=== PATIENT | female | born 1980 | race Caucasian/White ===

== ENCOUNTER 2019-10-14 17:02 | Emergency (ER) | payer OTHER, SELFPAY ==
--- NOTE | 2019-10-14 17:16 | ED.URI ---
HPI - URI/Sore Throat General Chief Complaint: Upper Respiratory Infection Stated Complaint: SORE THROAT Time Seen by Provider: 10/14/19 17:17 Source: patient Mode of arrival: ambulatory Limitations: no limitations History of Present Illness HPI Narrative: A 39 y/o female, who is a nonsmoker/nondrinker, presents to with c/o a sore throat for 3 days. Pt has taken cold medicine with no relief. She reports an intermittent low grade fever, a bilateral earache, sweats, and chills, but denies a cough and sick contacts. Onset (ago): day(s) (3) Treatments prior to arrival: cold medicine Related Data Home Medications Medication Instructions Recorded Confirmed Otc Flu Med 10/14/19 Allergies Allergy/AdvReac Type Severity Reaction Status Date / Time No Known Allergies Allergy Verified 10/14/19 17:24 Review of Systems Review of Systems: Narrative: General/Constitutional: No weight loss,possible fever Eyes: N0: Redness,discharge Ears/Nose/Throat: No: Epistaxis,ear discharge Respiratory: Denies: Hemoptysis Gastrointestinal: No Vomiting, Bleeding-rectal Skin: No Lumps, eruption Neurologic: No Focal Weakness,Sz Hematologic: Denies: Petechiae/Purpura Psychiatric: No: Suicida ideationl All Other Systems: Reviewed and Negative PMFSH Family History Family History (Updated 07/07/18 @ 14:45 by DOCTOR UNKNOWN) Grandparent Carcinoma of colon Social History Social History Alcohol intake: current Comments At time of signature, agree with nursing past medical, surgical, social and family history. There is no relevant family history pertinent to the presenting complaint Exam Narrative: Exam Narrative: General Appearance: Well appearing, Well nourished EYE: PERRLA, Conjunctiva clear Ears: Auditory canal normal, TM normal Nose: Rhinorrhea, Mucousal erythema Mouth/Throat: MM moist, Uvula midline, Pharyngeal erythema Neck: Supple, No adenopathy Respiratory: No respiratory distress, Breath sounds equal, Clear to auscultation Cardiovascular: RRR, No JVD Musculoskeletal: Non tender, Normal strength Skin: Warm, Dry Neurological: A&O x3, CN II-XII intact Psychiatric: Normal mood, Normal affect Course Vital Signs Vital signs: Vital Signs Temperature 98.5 F 10/14/19 17:17 Pulse Rate 79 10/14/19 17:17 Respiratory Rate 18 10/14/19 17:17 Blood Pressure 144/84 H 10/14/19 17:17 Pulse Oximetry 100 10/14/19 17:17 Temperature 98.5 F 10/14/19 17:17 Pulse Rate 79 10/14/19 17:17 Respiratory Rate 18 10/14/19 17:17 Blood Pressure 144/84 H 10/14/19 17:17 Pulse Oximetry 100 10/14/19 17:17 MDM - URI/Sore Throat Lab Data Labs: Influenza A Screen Negative Reference Range: Negative Influenza B Screen Positive Reference Range: Negative Discharge Plan Discharge Clinical Impression: Influenza B Patient Disposition: Home, Self-Care Condition: Stable Instructions: Influenza (ED) Prescriptions: New oseltamivir [Tamiflu] 75 mg capsule 75 mg PO Q12H 5 Days Qty: 10 RF: 0 codeine-guaifenesin 10-100 mg/5 mL liquid 7.5 ml PO Q6H PRN (Reason: cough) Qty: 118 RF: 0 Lidocaine Viscous 2 % solution 5 ml MUCOUS MEM QID PRN (Reason: pain) Qty: 100 RF: 0 No Action Otc Flu Med RF: 0 Follow-up/Referrals: Edna,DONG Mcclain [Primary Care Provider] - Stand Alone Forms: Work/School Release IP
[2019-10-14 17:17] VITALS: BP 144/84; PULSE 79; RESP 18; TEMP 36.9; O2SAT 100
== END 2019-10-14 17:32 | disposition home or self-care (01) ==
PROVIDERS: Emergency Provider Emergency Medicine; PCP Physician Assistant
DX: J10.1 Influenza due to other identified influenza virus with other respiratory manifestations (principal)
CPT/HCPCS: 87804; 99213; G0463

== ENCOUNTER → 2022-11-03 08:08 | Outpatient (CLI) | payer OTHER, SELFPAY ==
--- NOTE | ~2022-11-03 | US_ITS ---
EXAMINATION: US pelvic complete w TV DATE: 11/03/2022 09:11 INDICATION: Left lower quadrant abdominal pain. TECHNIQUE: Multiple transabdominal and transvaginal sonographic images of the pelvis were obtained. COMPARISON: None. FINDINGS: TRANSABDOMINAL ULTRASOUND: The uterus measures 10.7 x 4.5 x 7.4 cm. There is no free fluid in the pelvis. TRANSVAGINAL ULTRASOUND: The endometrial complex measures 11 mm in thickness. There are nabothian cysts in the cervix. The rig ht ovary measures 3.0 x 2.9 x 3.1 cm. The left ovary measures 4.4 x 3.5 x 3.3 cm. There is normal vas cular flow in the ovaries. IMPRESSION: 1. No etiology for the patient's symptoms. Reviewed, dictated and finalized at location A. S AND CUSTOMER RELATIONS REP
== END ==
PROVIDERS: PCP Physician Assistant; Visit Provider Physician Assistant
DX: R10.32 Left lower quadrant pain (principal)
CPT/HCPCS: 76830; 76856

== ENCOUNTER 2024-08-09 08:22 | Outpatient (CLI) | payer OTHER, SELFPAY ==
[2024-08-09 08:51] LABS: Basophils Percent Auto 0.6 % (0.2-1.2); Eosinophils Absolute Auto 0.1 K/mm3 (0-0.3); Hematocrit 38.3 % (37.0-47.0); Hemoglobin 11.5 g/dL (12.0-15.0); Immature Granulocyte Absolute 0.02 K/mm3 (0.00-0.031); Immature Granulocyte Percent A 0.3 % (0-0.5); Lymphocytes Absolute Auto 1.26 K/mm3 (0.9-3.2); Lymphocytes Percent Auto 20.5 % (18.3-44.2); Mean Corpuscular Hemoglobin 22.6 pg (26-34); Mean Corpuscular Volume 75.2 fl (80-100); Mean Platelet Volume 10.2 fl (7.4-10.4); Monocytes Absolute Auto 0.4 K/mm3 (0.1-0.6); Monocytes Percent Auto 7.1 % (2.6-8.5); Neutrophils Absolute Auto 4.3 K/mm3 (1.3-6.7); Neutrophils Percent Auto 70.5 % (45.5-73.1); Platelet Count Result 310 k/mm3 (150-375); Red Blood Count 5.09 M/mm3 (4.2-5.4); Red Cell Distribution Width 22.9 % (11.5-14.5); White Blood Count 6.2 K/mm3 (4.5-10.0)
[2024-08-09 09:18] LABS: Anisocytosis 1+; Platelet Estimate Adequate (Adequate); Schistocytes None Seen
[2024-08-09 09:19] LABS: Hemoglobin A1C 5.1 % (<5.7)
[2024-08-09 09:25] LABS: Cholesterol 210 mg/dL (0-200); HDL Direct 77 mg/dL; Triglycerides 69 mg/dL (<150)
[2024-08-09 09:36] LABS: LDL Cholesterol Direct 101 mg/dL
[2024-08-09 11:46] LABS: Vitamin D 25 Hydroxy 26.9 ng/mL
== END 2024-08-09 08:23 | disposition home or self-care (01) ==
LOC: ANHLAB 08:23
PROVIDERS: Visit Provider Obstetrics & Gynecology
DX: N92.0 Excessive and frequent menstruation with regular cycle (principal); E55.9 Vitamin D deficiency, unspecified; Z13.89 Encounter for screening for other disorder
CPT/HCPCS: 36415; 80061; 82306; 83036; 84443; 85025

== ENCOUNTER 2024-08-21 01:03 | Day surgery (SDC) | payer OTHER, SELFPAY ==
--- NOTE | 2024-08-09 16:56 | SUR.PREOP ---
Report to the Outpatient Waiting Room, entrance under the green pavilion located off [facility], at time _1130_ on date _08/21/24_. Planned Procedure Time: _1330_.? Time changes happen often and if your time is changed the preop area will call you the afternoon before. - You and your visitor will be asked to self-screen and do not enter if you have any COVID symptoms. Please call surgeon if you need to reschedule. - A mask is optional within the hospital at this time. Patients may have clear liquids (water, carbonated beverages, clear teas, apple juice) until 3 hours (1030) prior to surgery with a maximum of 20 ounces. - No food from midnight until time of surgery and no smoking. This includes no chewing gum, candy or mints. - Infants may have breast milk until 4 hours before surgery, infant formula 6 hours prior to surgery. - Children will be allowed to drink immediately following surgery.? If applicable, please bring a bottle or sippy cup to assist with drinking. Juice, water, soda, and popsicles are readily available.? For infants on formula, please bring formula the day of surgery.? Pacifiers are allowed. Take only the following medications with a SIP of water on the morning of surgery: _NA_ DO NOT STOP ANY OF YOUR OTHER PRESCRIPTION MEDICATIONS PRIOR TO SURGERY EXCEPT THE FOLLOWING Medications to discontinue per physician _NA_ Date to take last dose_NA_ Please no make-up, nail new zealander, hairspray, perfume, deodorant, or body powder the day of surgery.? No jewelry (including any body piercings) or valuables the day of surgery, leave them at home.? Please take a shower or bath the night before, or the morning of, surgery with an antibacterial soap.? Wear comfortable, loose fitting clothing.? Children are encouraged to wear pajamas. - Jewelry must be removed prior to entering the operating room.? Rings and piercings that are not removed may be cut off. - The hospital will not accept responsibility for valuables.? - Please leave all valuables, including medications, at home the day of surgery. If you are going home after surgery, a licensed water taxi driver must drive you home.? - NO public transportation without another adult if you receive anesthesia. - We recommend that an adult stay with you for 24 hours following discharge. - We also recommend that you do not drive, make important decision, drink alcoholic beverages, or take any drugs that were not prescribed by your health care provider for at least 24 hours after your discharge time. For Pediatric surgeries, we recommend two adults accompany the child home. Follow any additional instructions given to you from your surgeon. Telephone instructions given to _Camilla_and asked if any additional questions and then verbalized understanding. Patient advised to call surgeon office or pre surgery nurse liaison [phone] if any additional questions.
[2024-08-09 17:09] VITALS: BMI 30.1
--- NOTE | 2024-08-20 18:01 | P.HP_ITS ---
H&P: HPI History of Present Illness Date/Time: 08/20/24 18:01 Chief Complaint: AUB Narrative: Camilla is a 44yo [id number], who presents for surgery for AUB. She reports her periods were horrible last year; but have regulated. But since her WWE in 05/2024, started to worsened again. Her prior obgyn did an US; was going to get an ablation but insurance would not approve it. Her periods have since leveled out; monthly, last about 5 days, heavy for 2-3 (have always been heavy). Blood work showed she was very anemic with hgb of 9.8. She has since gotten IV iron infusions and her hgb samira appropriately to 11.5. No menopausal symptoms. She is sexually active w/o issue; has vasectomy. She denies any breast issues; had an abnormal mammo (dense), but repeat was normal, no h/o biopsies. She reports a normal h/o paps, most recent normal 05/2024. Review of Systems Constitutional: Constitutional: Denies chills, Denies fever(s) and Denies headache(s) Eyes: Eyes: Denies change in vision ENT: Denies dizziness and Denies headache(s) Cardiovascular: Cardiovascular: Denies chest pain and Denies dyspnea Respiratory: Respiratory: Denies cough and Denies dyspnea Gastrointestinal: Gastrointestinal: Denies abdominal pain and Denies change in stool character Genitourinary: Genitourinary: Reports abnormal menses, Reports menorrhagia, Denies pelvic pain, Denies vaginal discharge, Denies vaginal odor and Denies vaginal pruritus Neurologic: Denies dizziness and Denies headache(s) Psychiatric: Psychiatric: Denies anxiety and Denies depression [facility] Past Medical History Medical History delivery delivered Family History Family History Grandparent Carcinoma of colon Cancer grandmother/grandfather maternal Heart problem grandfather paternal Hypertension paternal grandfather Social History Social History (Updated 06/14/24 @ 09:08 by Keenan Shane MA) Smoking status: Never smoker Second hand tobacco smoke exposure: No Alcohol intake: current Drinks per week: 1 Alcohol use details: OCCASIONAL Substance use: never Substance use type: does not use Do You Feel Safe in your Home?: Yes Lack of Transportation: No Lack of Food: Never True Current Housing: I Have Housing Concerned About Future Housing: No Difficulty Paying Gas/Electric Bills: No Difficulty Paying for Meds: No Currently Unemployed: No Education: Trade/Vocational Certificate Difficulty w/ Childcare or Family Care: No Living arrangements: with family Additional living arrangements comments: and 3 children Occupation/Education: occupation Gender identity (if verbalized by the patient): Female Sexual Orientation (if Verbalized by the Patient): Straight or Heterosexual Spiritual care concerns: No Meds Home Medications and Allergies Home Medications ?Medication ?Instructions ?Recorded ?Confirmed ?Type tranexamic acid 650 mg tablet 1,300 mg PO TID 08/09/24 08/09/24 History Allergies Allergy/AdvReac Type Severity Reaction Status Date / Time No Known Allergies Allergy Verified 08/09/24 17:07 Exam Const: General: cooperative, healthy appearing, comfortable and no acute distress Orientation/consciousness: patient oriented x3 Resp: Effort & Inspection: normal respiratory effort Cardio: Rate: regular rate GI: Inspection: normal to inspection GI Palp: No abdominal tenderness and Yes Soft to palpation : Other: deferred to OR Skin: General skin exam: normal color Neuro: General: patient oriented x3 Extrem: General: normal to inspection Psych: Appearance: grossly normal Affect: normal affect Attitude: cooperative Assessment and Plan Assessment and plan (1) Menorrhagia: Qualifiers: Menorrhagia type: with regular cycle Qualified Code(s): N92.0 - Excessive and frequent menstruation with regular cycle Code(s): N92.0 - Excessive and frequent menstruation with regular cycle Status: Acute (2) Iron deficiency anemia secondary to blood loss (chronic): Code(s): D50.0 - Iron deficiency anemia secondary to blood loss (chronic) Status: Acute Plan - Pt w/ significant AUB leading to anemia; now improved after IV iron - Plan to proceed with Hysteroscopy with D&C for sampling; will then have HSC/D&C/ablation in 2 weeks. - Risks and benefits explained in detail.
--- NOTE | 2024-08-21 07:11 | WPDHPUPDATE1 ---
History and Physical Update Update Date/Time: 08/21/24 07:11 History and Physical has been reviewed, including an updated exam of the patient. There are NO changes in the patient's condition. Risks, benefits, and alternatives have been discussed and questions answered. Patient agrees to proceed with Hysteroscopy with D&C for sampling.
--- NOTE | 2024-08-21 11:07 | P.PNAN_ITS ---
Anes - Eval Pre Procedure Procedure: Operation Date: 08/21/24 13:30 Proposed Procedures p Hysteroscopy Dilation and Curettage - Yaz Royal MD Date/Time: 08/21/24 11:07 Surgeon: Lele Preop Diagnosis: abnormal uterine bleeding Pre Op Diagnosis: post menopausal bleeding Patient Data Age: 44 Gender: F Height: 1.6 m Weight: 77.11 kg Allergies Allergy/AdvReac Type Severity Reaction Status Date / Time No Known Allergies Allergy Verified 08/09/24 17:07 Home Medications ?Medication ?Instructions ?Recorded ?Confirmed ?Type tranexamic acid 650 mg tablet 1,300 mg PO TID 08/09/24 08/09/24 History Patient hx anesthesia problems: none Family hx anesthesia problems: none Results Review: All pre-operative results and documents have been reviewed as part of the pre- operative evaluation. [facility] Past Medical History Medical History delivery delivered Family History Family History Grandparent Carcinoma of colon Cancer grandmother/grandfather maternal Heart problem grandfather paternal Hypertension paternal grandfather Social History Social History Smoking status: Never smoker Second hand tobacco smoke exposure: No Alcohol intake: current Drinks per week: 1 Alcohol use details: OCCASIONAL Substance use: never Substance use type: does not use Do You Feel Safe in your Home?: Yes Lack of Transportation: No Lack of Food: Never True Current Housing: I Have Housing Concerned About Future Housing: No Difficulty Paying Gas/Electric Bills: No Difficulty Paying for Meds: No Currently Unemployed: No Education: Trade/Vocational Certificate Difficulty w/ Childcare or Family Care: No Living arrangements: with family Additional living arrangements comments: and 3 children Occupation/Education: occupation Gender identity (if verbalized by the patient): Female Sexual Orientation (if Verbalized by the Patient): Straight or Heterosexual Spiritual care concerns: No Exam Day of Procedure 08/21/24 11:07 Patient weight: overweight (bmi 30.1)
[2024-08-21 12:00] VITALS: BP 136/64; PULSE 74; RESP 14; TEMP 36.4; O2SAT 100
[2024-08-21] MEDS: ACETAMINOPHEN 500 MG TABLET 1000 MG PO (12:07)
--- NOTE | 2024-08-21 12:20 | P.PNAN_ITS ---
Anes - Eval Final PreProcedure Day of Procedure 08/21/24 12:20 Patient weight: overweight Heart: regular rate and rhythm Lungs: clear to auscultation Airway: Mallampati scale class II Neurological: alert and oriented Last oral intake: >/= 8 hours (solids) and 2 hours (liquids) ASA classification: II Emergent: no Anesthetic plan: proceed Anesthesia type and monitoring: general GIVS and standard monitoring Results Review: All pre-operative results and documents have been reviewed as part of the pre- operative evaluation. Informed Consent: The patient's anesthetic plan and its attendant risks and benefits were discussed with the patient/family/POA. Questions were solicited and answers provided to the satisfaction of the patient/family/POA.
[2024-08-21 13:06] LABS: BEDSIDEPREGUCG Negative (Negative)
--- NOTE | 2024-08-21 13:44 | SUR.OPER ---
fluid deficit of 50
[2024-08-21 13:51] VITALS: BP 114/64; PULSE 68; RESP 18; O2SAT 98
[2024-08-21] MEDS: LACTATED RINGERS 1,000 ML 30 ML IV CONT (13:51)
--- NOTE | 2024-08-21 13:56 | P.OP_ITS ---
Procedure Note - Detailed Date of Procedure 08/21/24 Pre-op Diagnosis Menorrhagia Iron deficiency anemia Post-op Diagnosis Same Procedure Performed Hysteroscopy with D&C Surgeon Yaz Royal MD Anesthesia MAC Findings Uterus sounded to 9cm, diffusely thickened endometrium noted throughout uterus; normal in appearance. Bilateral tubal ostia visualized. Good hemostasis at end of case. Fluid deficit: 50cc Description of Procedure Camilla was taken to the operating room where she was placed under sedation without complications.? She was then prepped and draped in the usual sterile fashion in the dorsal lithotomy position with her legs in low Chandler stirrups.? A time-out was performed and no perioperative antibiotics were indicated.? A bivalve speculum was placed within the vagina where the cervix was easily identified.? The anterior lip of the cervix was grasped with a single-tooth tenaculum.? The cervix was then serially dilated to allow for the hysteroscope.? The hysteroscope was advanced into the uterine cavity with the above findings no yolanda.? A curettage was then performed until a good uterine cry was felt throughout the uterus. Good hemostasis was noted.? All instruments were removed from the vagina.? Sponge, lap, instrument, and needle counts were correct at the end of the procedure.? Patient was awoken from anesthesia and taken to recovery with plans of same-day discharge home. Estimated Blood Loss 10 IV Fluids 700 Pathology Yes (Endometrial curettings) Complications No immediate complications Condition Stable Disposition Same day [facility] Billing Surgery - Charge Forward: Surgery Billing
[2024-08-21 14:21] VITALS: BP 103/54; PULSE 60; RESP 16; O2SAT 97
[2024-08-21 14:51] VITALS: BP 126/69; PULSE 73; RESP 16
== END 2024-08-21 15:19 | disposition home or self-care (01) ==
PROVIDERS: Visit Provider Obstetrics & Gynecology
PROC: 0U5B8ZZ Destruction of Endometrium, Via Natural or Artificial Opening Endoscopic (ICD-10-PCS; CPT 58563; principal; 2024-08-21 13:30)
DX: N92.0 Excessive and frequent menstruation with regular cycle (principal); D50.0 Iron deficiency anemia secondary to blood loss (chronic)
CPT/HCPCS: 58558; 88305; A9270; J1885; J2003; J2250; J2704; J3010; J7120

== ENCOUNTER 2024-09-04 00:24 | Day surgery (SDC) | payer OTHER, SELFPAY ==
[2024-08-28 12:47] VITALS: BMI 28.8
--- NOTE | 2024-08-28 12:53 | PC.NURSE ---
Report to the Outpatient Waiting Room, entrance under the green pavilion located off [facility], at time _0700_ on date _[id number]_. Planned Procedure Time: _0900_.? Time changes happen often and if your time is changed the preop area will call you the afternoon before. - You and your visitor will be asked to self-screen and do not enter if you have any COVID symptoms. Please call surgeon if you need to reschedule. - A mask is optional within the hospital at this time. Patients may have clear liquids (water, carbonated beverages, clear teas, apple juice) until 3 hours prior to surgery with a maximum of 20 ounces. - No food from midnight until time of surgery and no smoking. This includes no chewing gum, candy or mints. Take only the following medications with a SIP of water on the morning of surgery: ____Ok to take Acetaminophen if needed. DO NOT STOP ANY OF YOUR OTHER PRESCRIPTION MEDICATIONS PRIOR TO SURGERY EXCEPT THE FOLLOWING Medications to discontinue per physician ____All vitamins and supplements Ok to continue Acetaminophen as needed. Check with Dr Royal if need Ibuprofen. Date to take last kyat [id number] Please no make-up, nail cook islander, hairspray, perfume, deodorant, or body powder the day of surgery.? No jewelry (including any body piercings) or valuables the day of surgery, leave them at home.? Please take a shower or bath the night before, or the morning of, surgery with an antibacterial soap.? Wear comfortable, loose fitting clothing.? - Jewelry must be removed prior to entering the operating room.? Rings and piercings that are not removed may be cut off. - The hospital will not accept responsibility for valuables.? - Please leave all valuables, including medications, at home the day of surgery. If you are going home after surgery, a licensed ready mix truck driver must drive you home.? - NO public transportation without another adult if you receive anesthesia. - We recommend that an adult stay with you for 24 hours following discharge. - We also recommend that you do not drive, make important decision, drink alcoholic beverages, or take any drugs that were not prescribed by your health care provider for at least 24 hours after your discharge time. Follow any additional instructions given to you from your surgeon. Telephone instructions given to __Ederle__and asked if any additional questions and then verbalized understanding. Patient advised to call surgeon office or pre surgery nurse liaison [phone] if any additional questions.
--- NOTE | 2024-09-03 13:55 | PM.IMHP ---
H&P: HPI History of Present Illness Date/Time: 09/03/24 13:55 Chief Complaint: AUB Narrative: Camilla is a 44yo P3003, who presents for surgery for AUB. She reports her periods were horrible last year; but have regulated. But since her WWE in 05/2024, started to worsened again. Her prior obgyn did an US; was going to get an ablation but insurance would not approve it. Her periods have since leveled out; monthly, last about 5 days, heavy for 2-3 (have always been heavy). Blood work showed she was very anemic with hgb of 9.8. She has since gotten IV iron infusions and her hgb samira appropriately to 11.5. No menopausal symptoms. She is sexually active w/o issue; has vasectomy. She denies any breast issues; had an abnormal mammo (dense), but repeat was normal, no h/o biopsies. She reports a normal h/o paps, most recent normal 05/2024. She had a HSC/D&C 08/21/24 where normal cavity and benign endometrial pathology was noted. She would like to proceed with ablation to help manage her menorrhagia. Review of Systems Constitutional: Constitutional: Denies chills, Denies fever(s) and Denies headache(s) Eyes: Eyes: Denies change in vision ENT: Denies dizziness and Denies headache(s) Cardiovascular: Cardiovascular: Denies chest pain and Denies dyspnea Respiratory: Respiratory: Denies cough and Denies dyspnea Gastrointestinal: Gastrointestinal: Denies abdominal pain and Denies change in stool character Genitourinary: Genitourinary: Denies abnormal menses, Reports menorrhagia, Denies pelvic pain, Denies vaginal discharge, Denies vaginal odor and Denies vaginal pruritus Neurologic: Denies dizziness and Denies headache(s) Psychiatric: Psychiatric: Denies anxiety and Denies depression [facility] Past Medical History Medical History delivery delivered Surgical History Surgical History (Updated 08/24/24 @ 16:23 by Tess Cleaning [facility]) History of hysteroscopy (08/21/24) Hysteroscopy with D&C / benign pathology Family History Family History Grandparent Carcinoma of colon Cancer grandmother/grandfather maternal Heart problem grandfather paternal Hypertension paternal grandfather Social History Social History Smoking status: Never smoker Second hand tobacco smoke exposure: No Alcohol intake: current Drinks per week: 1 Alcohol use details: OCCASIONAL Substance use: never Substance use type: does not use Do You Feel Safe in your Home?: Yes Lack of Transportation: No Lack of Food: Never True Current Housing: I Have Housing Concerned About Future Housing: No Difficulty Paying Gas/Electric Bills: No Difficulty Paying for Meds: No Currently Unemployed: No Education: Trade/Vocational Certificate Difficulty w/ Childcare or Family Care: No Living arrangements: with family Additional living arrangements comments: and 3 children Occupation/Education: occupation Gender identity (if verbalized by the patient): Female Sexual Orientation (if Verbalized by the Patient): Straight or Heterosexual Spiritual care concerns: No Meds Home Medications and Allergies Home Medications ?Medication ?Instructions ?Recorded ?Confirmed ?Type acetaminophen 500 mg tablet 1,000 mg (2 x 500 mg) PO TID #60 08/21/24 08/28/24 Rx tabs cholecalciferol (vitamin D3) PO DAILY 08/21/24 History ferrous sulfate 325 mg (65 mg 325 mg PO DAILY 08/21/24 08/28/24 History iron) tablet (Iron (ferrous sulfate)) ibuprofen 800 mg tablet 800 mg PO TID #30 tabs 08/21/24 08/28/24 Rx multivitamin (Daily Multi-Vitamin 1 tablet PO DAILY 08/21/24 08/28/24 History tablet) Allergies Allergy/AdvReac Type Severity Reaction Status Date / Time No Known Allergies Allergy Verified 08/28/24 12:45 Exam Const: General: cooperative, healthy appearing, comfortable and no acute distress Orientation/consciousness: patient oriented x3 Resp: Effort & Inspection: normal respiratory effort Cardio: Rate: regular rate GI: Inspection: normal to inspection GI Palp: No abdominal tenderness and Yes Soft to palpation : Other: deferred to OR Skin: General skin exam: normal color Neuro: General: patient oriented x3 Extrem: General: normal to inspection Psych: Appearance: grossly normal Affect: normal affect Attitude: cooperative Assessment and Plan Assessment and plan (1) Menorrhagia: Qualifiers: Menorrhagia type: with regular cycle Qualified Code(s): N92.0 - Excessive and frequent menstruation with regular cycle Code(s): N92.0 - Excessive and frequent menstruation with regular cycle Status: Acute Plan - normal cavity and benign endometrium on 08/21/24 - proceed with hysteroscopy, D&C, with Wendy endometrial ablation. - Risks and benefits discussed in detail
--- NOTE | 2024-09-04 07:03 | WPDHPUPDATE1 ---
History and Physical Update Update Date/Time: 09/04/24 07:03 History and Physical has been reviewed, including an updated exam of the patient. There are NO changes in the patient's condition. Risks, benefits, and alternatives have been discussed and questions answered. Patient agrees to proceed with hysteroscopy, D&C, with Wendy endometrial ablation.
--- NOTE | 2024-09-04 08:26 | P.PNAN_ITS ---
Anes - Initial Pre Proc Eval Procedure: Operation Date: 09/04/24 09:00 Proposed Procedures p Hysteroscopy Dilation and Curettage with Wendy Endometrial Ablation - Yaz Royal MD Date/Time: 09/04/24 08:26 Surgeon: Yaz Royal MD Pre Op Diagnosis: post menopausal bleeding Patient Data Age: 44 Gender: F Height: 1.61 m Weight: 75 kg Allergies Allergy/AdvReac Type Severity Reaction Status Date / Time No Known Allergies Allergy Verified 08/28/24 12:45 Home Medications ?Medication ?Instructions ?Recorded ?Confirmed ?Type acetaminophen 500 mg tablet 1,000 mg (2 x 500 mg) PO TID #60 08/21/24 08/28/24 Rx tabs cholecalciferol (vitamin D3) PO DAILY 08/21/24 History ferrous sulfate 325 mg (65 mg 325 mg PO DAILY 08/21/24 08/28/24 History iron) tablet (Iron (ferrous sulfate)) ibuprofen 800 mg tablet 800 mg PO TID #30 tabs 08/21/24 08/28/24 Rx multivitamin (Daily Multi-Vitamin 1 tablet PO DAILY 08/21/24 08/28/24 History tablet) Patient hx anesthesia problems: none Family hx anesthesia problems: none Results Review: All pre-operative results and documents have been reviewed as part of the pre- operative evaluation. [facility] Past Medical History Medical History delivery delivered Surgical History Surgical History History of hysteroscopy (08/21/24) Hysteroscopy with D&C / benign pathology Family History Family History Grandparent Carcinoma of colon Cancer grandmother/grandfather maternal Heart problem grandfather paternal Hypertension paternal grandfather Social History Social History Smoking status: Never smoker Second hand tobacco smoke exposure: No Alcohol intake: current Drinks per week: 1 Alcohol use details: OCCASIONAL Substance use: never Substance use type: does not use Do You Feel Safe in your Home?: Yes Lack of Transportation: No Lack of Food: Never True Current Housing: I Have Housing Concerned About Future Housing: No Difficulty Paying Gas/Electric Bills: No Difficulty Paying for Meds: No Currently Unemployed: No Education: Trade/Vocational Certificate Difficulty w/ Childcare or Family Care: No Living arrangements: with family Additional living arrangements comments: and 3 children Occupation/Education: occupation Gender identity (if verbalized by the patient): Female Sexual Orientation (if Verbalized by the Patient): Straight or Heterosexual Spiritual care concerns: No Anes - Eval Final PreProcedure Day of Procedure 09/04/24 08:26 Patient weight: overweight Heart: regular rate and rhythm Lungs: clear to auscultation Airway: Mallampati scale class II Neurological: alert and oriented Last oral intake: >/= 8 hours ASA classification: II Emergent: no Anesthetic plan: proceed Anesthesia type and monitoring: general GIVS and standard monitoring Results Review: All pre-operative results and documents have been reviewed as part of the pre-op erative evaluation. Informed Consent: The patient's anesthetic plan and its attendant risks and benefits were discussed with the patient/family/POA. Questions were solicited and answers provided to the satisfaction of the patient/family/POA.
[2024-09-04 08:35] VITALS: BP 139/70; PULSE 71; RESP 14; TEMP 36.1; O2SAT 100
[2024-09-04] MEDS: LACTATED RINGERS 1,000 ML 30 ML IV CONT (08:35)
[2024-09-04] MEDS: ACETAMINOPHEN 500 MG TABLET 1000 MG PO (08:35)
[2024-09-04] MEDS: KETOROLAC 15 MG/ML VIAL (*BKC) IV PUSH (09:30)
--- NOTE | 2024-09-04 09:34 | W.PM.PROC2 ---
Procedure Note - Detailed Date of Procedure 09/04/24 Pre-op Diagnosis abnormal uterine bleeding pablo-menopause Iron deficiency anemia Post-op Diagnosis Same Procedure Performed Hysteroscopy, D&C, with Wendy endometrial ablation Surgeon Yaz Royal MD Anesthesia MAC Findings Uterus sounded to 9.5cm; cervix 5.5cm. Normal cavity, normal thin lining, bilateral tubal ostia visualized. Good hemostasis at end of case. Fluid deficit: 20cc Description of Procedure Camilla was taken to the operating room where she was placed under sedation without complications. She was then prepped and draped in the usual sterile fashion in the dorsal lithotomy position with her legs in low Chandler stirrups. A time-out was performed and no perioperative antibiotics were indicated. A bivalve speculum was placed within the vagina where the cervix was easily identified. The anterior lip of the cervix was grasped with a single-tooth tenaculum. The cervix was already dilated and did not require dilation for the hysteroscope to be able to advance. The hysteroscope was then advanced into the uterine cavity with the above findings noted. A curettage was then performed until a good uterine cry was felt throughout the uterus. The Wendy endometrial ablation device was then placed within the endometrial cavity; set to 5.5cm. The first device did not complete the test run; it was noted that that balloon was not working properly and a new device was obtained. The hysteroscope was once again advanced into the uterine cavity and no defect or abnormalities were noted. Using the new device, the test ran without issue and the procedure was performed per radar air traffic controller's instructions in the correct manner without complications. Good hemostasis was noted. All instruments were removed from the vagina. Sponge, lap, instrument, and needle counts were correct at the end of the procedure. Patient was awoken from anesthesia and taken to recovery with plans of same-day discharge home. Estimated Blood Loss 10 IV Fluids 500 Pathology Yes (endometrial curetting's) Complications No immediate complications Condition Stable Disposition Same day [facility] Billing Surgery - Charge Forward: Surgery Billing
[2024-09-04 09:38] VITALS: BP 110/45; PULSE 55; RESP 12; O2SAT 100
[2024-09-04 10:00] VITALS: BP 115/66; PULSE 50; RESP 12; O2SAT 98
[2024-09-04] MEDS: oxyCODONE HCL (*CRX) 5 MG TAB IR PO (10:21)
[2024-09-04 10:30] VITALS: BP 110/55; PULSE 55; RESP 14
[2024-09-04 10:47] VITALS: BP 112/56; PULSE 56; RESP 15
== END 2024-09-04 10:53 | disposition home or self-care (01) ==
PROVIDERS: Visit Provider Obstetrics & Gynecology
PROC: 0U5B8ZZ Destruction of Endometrium, Via Natural or Artificial Opening Endoscopic (ICD-10-PCS; CPT 58563; principal; 2024-09-04 09:00)
DX: N92.0 Excessive and frequent menstruation with regular cycle (principal); Z79.1 Long term (current) use of non-steroidal anti-inflammatories (NSAID); Z98.890 Other specified postprocedural states; Z80.0 Family history of malignant neoplasm of digestive organs; Z82.49 Family history of ischemic heart disease and other diseases of the circulatory system
CPT/HCPCS: 58563; 88305; A9270; J1100; J1885; J2003; J2250; J2405; J2704; J3010; J7120